=== PATIENT | female | born 1995 | race Hispanic/Latino ===

== ENCOUNTER 2019-07-03 02:43 | Inpatient (IN) ==
[2019-07-03 03:31] LABS: URINE SOURCE VOIDED
[2019-07-03 03:32] LABS: BILIRUBIN URINE NEGATIVE (NEGATIVE); BLOOD URINE 3+ (NEGATIVE); CLARITY CLEAR (CLEAR); COLOR YELLOW; GLUCOSE URINE NEGATIVE (NEGATIVE); KETONE URINE 1+(Small) mg/dL (NEGATIVE); LEUKOCYTES URINE 2+ (NEGATIVE); NITRITE URINE NEGATIVE (NEGATIVE); PH URINE 6.5; PROTEIN URINE 1+(30 mg/dL) mg/dL (NEGATIVE); UROBILINOGEN URINE 1 mg/dL
[2019-07-03 03:56] LABS: UR AMPHETAMINES QUAL NONE DETECTED (NONE DETECT); UR BARBITUATES QUAL NONE DETECTED (NONE DETECT); UR BENZODIAZEPIN QUAL NONE DETECTED (NONE DETECT); UR CANNABINOIDS QUAL NONE DETECTED (NONE DETECT); UR COCAINE QUAL NONE DETECTED (NONE DETECT); UR METHADONE QUAL NONE DETECTED (NONE DETECT); UR METHAMPHETAMINE QUAL NONE DETECTED (NONE DETECT); UR OPIATES QUAL NONE DETECTED (NONE DETECT); UR OXYCODONE QUAL NONE DETECTED (NONE DETECT); UR PCP QUAL NONE DETECTED (NONE DETECT); UR PROPOXYPHENE QUAL NONE DETECTED (NONE DETECT); UR TCA QUAL NONE DETECTED (NONE DETECT)
[2019-07-03] MEDS ORDERED: PEPCID PO PRN (04:03)
[2019-07-03] MEDS ORDERED: KEFZOL 1 GM/D5W 1 GM/50 ML IVPB IV PRN (04:03)
[2019-07-03] MEDS ORDERED: AMPICILLIN 2 GM/NS 2 GM/100 ML IVPB IV ONE (04:03)
[2019-07-03] MEDS ORDERED: PEPCID PO ONE (04:03)
[2019-07-03] MEDS ORDERED: STADOL IV PRN (04:03)
[2019-07-03] MEDS ORDERED: TYLENOL PO PRN (04:03)
[2019-07-03] MEDS ORDERED: REGLAN PO ONE (04:03)
[2019-07-03] MEDS ORDERED: ZOFRAN IV PRN (04:03)
[2019-07-03] MEDS ORDERED: PEPCID IV PRN (04:03)
[2019-07-03] MEDS: LR 1,000 ML IV SCH ×2 (04:05→05:30)
[2019-07-03] MEDS ORDERED: MINERAL OIL PRN (04:07)
[2019-07-03] MEDS ORDERED: XYLOCAINE-MPF 1% INJ PRN ×2 (04:07→06:05)
[2019-07-03] MEDS ORDERED: SODIUM CHLORIDE 0.9% INJ SCH (04:15)
[2019-07-03] MEDS ORDERED: PITOCIN 30 UNITS/NS 30 UNIT/500 ML IV.SOLN IV SCH ×2 (04:15→06:15)
[2019-07-03] MEDS ORDERED: CELESTONE SOLUSPAN IM ONE (04:27)
[2019-07-03 04:45] LABS: BASO# 0.01 X1000 (0.0-0.2); BASO% 0.1 % (0.0-0.8); EOS# 0.05 X1000 (0.0-0.7); EOS% 0.5 % (0.0-10.0); HEMATOCRIT 30.7 % (37.0-47.0); HEMOGLOBIN 9.5 g/dL (12.0-16.0); IMM GRAN# 0.02 X1000 (0.0-0.04); IMM GRAN% 0.2 % (0.0-0.5); LYMPH# 1.75 X1000 (1.2-3.4); LYMPH% 18.7 % (20.5-51.1); MCH 23.6 PG (27-31); MCHC 30.9 g/dL (33-37); MCV 76.2 FL (81-99); MONO# 0.63 X1000 (0.11-0.59); MONO% 6.7 % (1.7-9.3); MPV 11.2 FL (7.4-10.4); NEUT# 6.89 X1000 (1.4-6.5); NEUT% 73.8 % (42.2-75.2); PLT 263 X1000 (130-400); RBC 4.03 XMIL (4.2-5.4); RDW 14.3 % (11.5-14.5); WBC 9.35 X1000 (4.8-10.8)
--- NOTE | 2019-07-03 04:57 | OB/GYN PROGRESS NOTE ---
Progress Note OB - . Patient Problems: Current Active Problems Problem Status Onset Active labor Acute OB Progress Note: Vital Signs - 24 hr 07/03/19 03:01 07/03/19 03:35 Temperature 98.3 F 97.6 F Pulse Rate 77 72 Respiratory Rate 18 16 Blood Pressure 106/65 101/67 O2 Sat by Pulse Oximetry 100 100 Laboratory Results - last 24 hr 07/03/19 07/03/19 07/03/19 03:15 03:15 04:05 WBC 9.35 RBC 4.03 L Hgb 9.5 L Hct 30.7 L MCV 76.2 L MCH 23.6 L MCHC 30.9 L RDW Std Deviation 14.3 Plt Count 263 MPV 11.2 H Immature Gran % (Auto) 0.2 Neut % (Auto) 73.8 Lymph % (Auto) 18.7 L [place] % (Auto) 6.7 Eos % (Auto) 0.5 Baso % (Auto) 0.1 Immature Gran # (Auto) 0.02 Neut # (Auto) 6.89 H Lymph # (Auto) 1.75 [place] # (Auto) 0.63 H Eos # (Auto) 0.05 Baso # (Auto) 0.01 Urine Source VOIDED Urine Color YELLOW Urine Clarity CLEAR Urine pH 6.5 Ur Specific [place] 1.020 Urine Protein 1+(30 mg/dL) A Urine Ketones 1+(Small) A Urine Blood 3+ A Urine Nitrite NEGATIVE Urine Bilirubin NEGATIVE Urine Urobilinogen 1 Urine WBC 2+ A Urine Glucose NEGATIVE Urine Opiates Screen NONE DETECTED Ur Oxycodone Screen NONE DETECTED Urine Methadone Screen NONE DETECTED U Propoxyphene Qual NONE DETECTED Ur Barbituates Screen NONE DETECTED Ur Tricyclics Screen NONE DETECTED Ur Phencyclidine Scrn NONE DETECTED Ur Amphetamines Screen NONE DETECTED U Methamphetamines Scrn NONE DETECTED U Benzodiazepines Scrn NONE DETECTED Urine Cocaine Screen NONE DETECTED U Cannabinoids Screen NONE DETECTED -CBC reviewed -Patient received BMZ and Ampicillin initiated -Vibroacoustic stimulation attempted twice given minimal variability, with no reactivity noted -Will augment labor/AROM -Nursing Secretary notified to be present for delivery d/t possible pre-term status and Cat 2 tracings noted
[2019-07-03 05:29] LABS: RAPID HIV PRESUMPTIVE NEGATIVE
[2019-07-03] MEDS ORDERED: BENADRYL PO PRN (06:05)
[2019-07-03] MEDS ORDERED: MINERAL OIL PO PRN (06:05)
[2019-07-03] MEDS ORDERED: CYTOTEC PO PRN (06:05)
[2019-07-03] MEDS ORDERED: PERI MEDS (DERMOPLAST/NUPERCAINAL/TUCKS) MISC PRN (06:05)
[2019-07-03] MEDS ORDERED: PITOCIN IM PRN (06:05)
[2019-07-03] MEDS ORDERED: BOOSTRIX VACCINE IM ONE (06:05)
[2019-07-03] MEDS ORDERED: M-M-R II VACCINE SUBQ ONE (06:05)
[2019-07-03] MEDS ORDERED: PITOCIN 20 UNITS/NS 20 UNITS/1,000 ML IV.SOLN IV SCH (06:15)
[2019-07-03] MEDS ORDERED: LR 2,000 ML ONE (06:16)
--- NOTE | 2019-07-03 06:20 | HISTORY AND PHYSICAL ---
HISTORY OF PRESENT ILLNESS: A 24-year-old, G3, P2, at approximately 35 weeks by bedside ultrasound done on 05/03/2019, admitted for active labor. The patient speaks a foreign dialect in which no binding stitcher was available to be used. Therefore, subjective history limited due to language barrier. The patient's significant other spoke very little [place]. Reports that the patient had 2 prior vaginal deliveries without any apparent complications in [facility]. There is suspicion that the patient has had no care during this . PAST MEDICAL HISTORY: Not able to obtain due to language barrier. SURGICAL HISTORY: Not able to obtain due to language barrier. OBSTETRICAL HISTORY: Not able to obtain due to language barrier. GYNECOLOGIC HISTORY: Not able to obtain due to language barrier. FAMILY HISTORY: Not able to obtain due to language barrier. SOCIAL HISTORY: Not able to obtain due to language barrier. REVIEW OF SYSTEMS: None apparent. PHYSICAL EXAMINATION: VITAL SIGNS: Temperature 97.6 degrees, heart rate 76, respirations 16, blood pressure 101/67, BMI 27.5. GENERAL: No apparent distress. The patient does not appear to be in pain and is tolerating contractions very well. CARDIOVASCULAR: Regular rate, rhythm. PULMONARY: Clear to auscultation bilaterally. ABDOMEN: Soft, nontender to palpation and gravid. No apparent surgical scars noted, including no apparent scar. EXTREMITIES: No lower extremity tenderness to palpation. PELVIC: SVE 8 cm dilated, 90% effaced, and -2 station with a bulging bag of membranes. Bedside ultrasound: Cephalic presentation. EFW by bedside growth ultrasound 2573 g. heart tracings: 140s, minimal to moderate variability, no accelerations present. Early decelerations present. Tocometer: Contractions noted every approximately 2 to 5 minutes. LABORATORY: Routine labs ordered and currently pending. UDS negative. ASSESSMENT AND PLAN: A 24-year-old, G3, P2, at 35 weeks by a 35 week bedside ultrasound with: 1. labor -One dose of betamethasone given for lung maturity. -We will start ampicillin for GBS unknown status for prophylaxis, -Plan for expectant management at this time. If heart tracings deteriorate, will augment labor accordingly. - well-being currently, category 1 tracings now with moderate variability noted. -Discussion of the risks and benefits of vaginal delivery was unable to be discussed with the patient or family member given the communication barrier. -We will attempt to retrieve any records that is possibly available. Review of the EMR was done on patient with no known prior visits. [facility]
[2019-07-03] MEDS ORDERED: COLACE PO PRN (06:21)
--- NOTE | 2019-07-03 07:01 | OPERATIVE NOTE ---
PROCEDURE DATE: 07/03/2019 TIME OF DELIVERY: 541. PREOPERATIVE DIAGNOSIS: A 24-year-old, 3, para 2, at 35 weeks based on bedside ultrasound, in active labor. POSTOPERATIVE DIAGNOSIS: A 24-year-old, 3, para 3, status post spontaneous vaginal delivery at 35 weeks. ATTENDING PHYSICIAN: Mark Paulino MD. PROCEDURE: Spontaneous vaginal delivery. COMPLICATIONS: Shoulder dystocia, relieved by Brigette maneuver, suprapubic pressure, and delivery of the posterior shoulder (left arm). CORD GASES: Arterial: pH 7.24, pCO2 51, pO2 22, HCO3 18.3, Base excess -6.2, lactate 3.80 ESTIMATED BLOOD LOSS: Approximately 150 mL. SPECIMENS REMOVED: Placenta; umbilical cord gases sent. DRAINS: Bladder drain upon admission. PROCEDURE DETAILS: A 24-year-old G 3, P 2, at 35 weeks gestational age by an informal ultrasound done upon admission presented in active labor and progressed to complete cervical dilation without epidural present and had a spontaneous vaginal delivery of a live female , 7 and 10 at one and five minutes respectively. Weight 6 pounds 7 ounces. Patient spoke a foreign language, without an appropriate training and development project leader available, and therefore a communication barrier was present. The head delivered first in KAZ position, with patient pushing frequently in bursts for less than 5 seconds with each push. After delivery of head, gentle downward traction was initially applied. A shoulder dystocia was noted, with the anterior shoulder being the right arm. An attempt was made to inform patient to stop pushing. However, given the language barrier, the patient continued to repeatedly push intermittently, which made delivery difficult. Brigette maneuver was applied with the assistance of 2 nurses, followed by suprapubic pressure. No fundal pressure was applied. With continued maternal pushing due to the language barrier, the anterior shoulder was not successfully delivered. Therefore, an attempt was made to deliver the posterior arm. This was difficult, as the elbow/forearm could not be reached. Therefore, delivery of the posterior shoulder was attempted. This was done successfully via a shoulder shrug maneuver in which the axilla was gently pulled toward the head and shoulder retracted toward the vaginal opening. The head and shoulder was then rotated opposite the 's face, effectively delivering the other shoulder atraumatically with gentle downward traction and continued Brigette maneuver. The shoulder dystocia lasted approximately 1 minute. The body was then delivered gently. Nuchal cord x1 was noted, which was reduced after delivery of the body. The infant was placed on maternal abdomen. The umbilical cord was clamped and cut, and the infant was transferred to the baby warmer for evaluation by the blade filer. No evidence of injury was reported by the blade filer. The placenta was then delivered grossly intact with three-vessel cord present. Umbilical cord gases were collected. Inspection of the cervix, vagina, and perineum was done, revealing no lacerations. EBL was approximately 150 mL. Fundus was firm. The patient tolerated delivery well. Sponge count was correct. [facility]
[2019-07-03] MEDS ORDERED: AMPICILLIN 1 GM/NS 1 GM/50 ML IVPB IV SCH (08:04)
[2019-07-03] MEDS ORDERED: FLU VACCINE IM ONE (12:00)
[2019-07-03 12:34] LABS: RUBELLA SCREEN NON IMMUNE (IMMUNE)
[2019-07-03] MEDS: PRECARE PO SCH (17:26)
[2019-07-03] MEDS: FERROUS SULFATE PO SCH (17:27)
[2019-07-03] MEDS: VITAMIN C PO SCH (17:27)
[2019-07-03 19:24] LABS: HEMATOCRIT 30.1 % (37.0-47.0); HEMOGLOBIN 9.4 g/dL (12.0-16.0); MCH 23.9 PG (27-31); MCHC 31.2 g/dL (33-37); MCV 76.4 FL (81-99); MPV 11.5 FL (7.4-10.4); RBC 3.94 XMIL (4.2-5.4); RDW 14.5 % (11.5-14.5); WBC 14.26 X1000 (4.8-10.8)
[2019-07-03] MEDS ORDERED: PERICOLACE PO SCH (21:00)
[2019-07-04] MEDS: MOTRIN PO PRN ×3 (00:28→17:04)
--- NOTE | 2019-07-04 07:37 | OB/GYN PROGRESS NOTE ---
Progress Note OB - . Patient Problems: Current Active Problems Problem Status Onset (spontaneous vaginal delivery) Acute Anemia Acute Active labor Acute OB Progress Note: Vital Signs - 24 hr 07/03/19 12:00 07/03/19 16:00 07/03/19 20:47 Temperature 98.7 F 97.8 F 97.6 F Pulse Rate 63 64 61 Respiratory Rate 14 16 16 Blood Pressure 98/56 92/53 95/51 O2 Sat by Pulse Oximetry 99 97 99 07/04/19 00:32 07/04/19 07:03 Temperature 98.1 F 98.2 F Pulse Rate 65 67 Respiratory Rate 16 20 Blood Pressure 97/53 103/62 O2 Sat by Pulse Oximetry 97 99 Laboratory Results - last 24 hr 07/03/19 07/03/19 04:05 19:05 WBC 14.26 H RBC 3.94 L Hgb 9.4 L Hct 30.1 L MCV 76.4 L MCH 23.9 L MCHC 31.2 L RDW Std Deviation 14.5 Plt Count 268 MPV 11.5 H Rubella Immunity Screen NON IMMUNE H Patient without complaints. No heavy vaginal bleeding. Pain minimal. No concerns. O: Gen: NAD CV: RRR Pulm: CTAB; no rhonchi, wheezing, or rales Abd: soft, non-tender to palpation; non-distended; fundus firm and above umbilicus Ext: no LE TTP Labs: reviewed A&P: 24yo s/p at 35wks (by a 35 wk bedside US), 1. PPD#1 -No concerns -SW consultation ordered due to suspicion of no care -Prelim labs reviewed 2. Anemia -Continue PNV, Fe, and Vit C -VS wnl 3. Rubella NON-immune -MMR booster
[2019-07-04] MEDS: VITAMIN C PO SCH (08:53)
[2019-07-04] MEDS: FERROUS SULFATE PO SCH (08:53)
[2019-07-04] MEDS: PRECARE PO SCH (08:53)
[2019-07-04 16:20] LABS: HIV ANTIBODY SCREEN SEE COMMENTS
[2019-07-05 08:18] LABS: HEPATITIS B SURFACE ANTIGEN SEE COMMENTS
--- NOTE | 2019-07-05 09:39 | OB/GYN PROGRESS NOTE ---
- Subjective Pt seen and examined. Currently w/o complaints Ambulating and urinating w/o difficulty Tolerating regular diet, Denies N/V +Bottle feeding and decreased Lochia OB Physical Exam Vital Signs - 8 hr 07/05/19 04:14 Temperature 96.7 F L Pulse Rate 65 Respiratory Rate 18 Blood Pressure 93/50 O2 Sat by Pulse Oximetry 99 - CONSTITUTIONAL General Appearance: appears well, alert, no apparent distress - RESPIRATORY Respiratory: lungs clear, normal breath sounds - CARDIOVASCULAR Cardiovascular: regular rate, rhythm - GASTROINTESTINAL (ABDOMEN) Abdominal Exam: non tender (FF at umbilicus), soft - GENITOURINARY Female Genitalia/Pelvic Exam: external exam normal (Decreased lochia) - MUSCULOSKELETAL Extremity: non-tender, no calf tenderness - PSYCHIATRIC Psych/Mental Status: normal mood/affect, oriented x 3 Active Medications Generic Name Dose Route Start Last Admin Trade Name Freq PRN Reason Stop Dose Admin Ascorbic Acid 500 mg 07/03/19 09:00 07/04/19 08:53 Vitamin C PO 500 mg DAILY JULIO C Administration Benzocaine 1 each 07/03/19 06:05 Margareth Meds (Dermoplast/Nupercainal/Tucks) MISC 3-4XDAY PRN PRN episiotomy/hemorrhoids Diphenhydramine HCl 25 mg 07/03/19 06:05 Benadryl PO Q4H PRN PRN Itching Docusate Sodium 100 mg 07/03/19 06:21 Colace PO BID PRN PRN CONSTIPATION Ferrous Sulfate 325 mg 07/03/19 09:00 07/04/19 08:53 Ferrous Sulfate PO 325 mg DAILY JULIO C Administration Ibuprofen 800 mg 07/03/19 06:05 07/04/19 17:04 Motrin PO 800 mg Q8H PRN PRN Administration cramping Lidocaine HCl 30 ml 07/03/19 06:05 Xylocaine-Mpf 1% INJ PRN PRN Perineal repair Mineral Oil 30 ml 07/03/19 06:05 Mineral Oil PO PRN PRN Perineal massage Misoprostol 800 microgm 07/03/19 06:05 Cytotec PO PRN PRN Severe bleeding Oxytocin 20 unit 07/03/19 06:05 Pitocin IM PRN PRN Severe bleeding Multivit/Folic Acid/Iron 1 each 07/03/19 09:00 07/04/19 08:53 Precare PO 1 each DAILY JULIO C Administration Laboratory Results - last 24 hr 07/03/19 07/03/19 04:05 05:29 Hep Bs Antigen SEE COMMENTS HIV 1&2 Antibody Screen SEE COMMENTS - Assessment & Plan (1) (spontaneous vaginal delivery) Status: Resolved - Progress Note Disposition: 24yo PPD#2 s/p complicated by shoulder dystocia -Pain well controlled on PO pain meds -OOB to ambulation -regular diet -pp cbc ordered -continue routine PP care -plan for d/c home today
[2019-07-05 09:52] LABS: BASO# 0.02 X1000 (0.0-0.2); BASO% 0.2 % (0.0-0.8); EOS# 0.05 X1000 (0.0-0.7); EOS% 0.5 % (0.0-10.0); HEMATOCRIT 29.6 % (37.0-47.0); IMM GRAN# 0.08 X1000 (0.0-0.04); IMM GRAN% 0.8 % (0.0-0.5); LYMPH# 2.11 X1000 (1.2-3.4); LYMPH% 20.6 % (20.5-51.1); MCH 23.7 PG (27-31); MCHC 30.4 g/dL (33-37); MCV 78.1 FL (81-99); MONO# 0.66 X1000 (0.11-0.59); MONO% 6.5 % (1.7-9.3); MPV 10.9 FL (7.4-10.4); NEUT# 7.31 X1000 (1.4-6.5); NEUT% 71.4 % (42.2-75.2); PLT 250 X1000 (130-400); RBC 3.79 XMIL (4.2-5.4); RDW 14.8 % (11.5-14.5); WBC 10.23 X1000 (4.8-10.8)
[2019-07-05] MEDS: FERROUS SULFATE PO SCH (09:57)
[2019-07-05] MEDS: VITAMIN C PO SCH (09:57)
[2019-07-05] MEDS: PRECARE PO SCH (09:57)
[2019-07-05 10:04] VITALS: BP 91/53
== END 2019-07-05 13:50 | disposition home or self-care (01) | DRG 807 ==
LOC: P.ED 02:43 → P.OPLD 03:05 → P.LD 03:09
PROVIDERS: ADMIT Obstetrics & Gynecology Obstetrics; ATTEND Obstetrics & Gynecology Obstetrics